=== PATIENT | male | born 1990 | race Caucasian/White ===

== ENCOUNTER 2020-05-04 01:06 | Emergency (ER) | payer OTHER ==
[~2020-05-04] VITALS: Ht 172.7 cm; Wt 113.4 kg
[2020-05-04 01:38] LABS: ABSOLUTE EOSINOPHILS 0.1 thou/uL (0.0-0.7); ABSOLUTE LYMPHOCYTES 0.9 thou/uL (0.8-5.3); ABSOLUTE MONOCYTES 0.3 thou/uL (0.0-1.2); ABSOLUTE NEUTROPHILS 3.8 thou/uL (1.6-8.1); BASOPHILS 0.8 %; EOSINOPHILS 2.6 %; HEMATOCRIT 44.5 % (42.0-52.0); LYMPHOCYTES 17.5 %; MCH 31.1 pg (26.0-34.0); MCHC 33.8 g/dL (28.0-37.0); MONOCYTES 6.6 %; MPV 8.4 fl. (7.2-11.1); NUCLEATED RBCS 0 /100WBC; PLATELET COUNT* 222 thou/uL (150-400); POLYS 72.5 %; RBC 4.84 mil/uL (4.50-6.00); RDW-CV 12.2 % (10.5-14.5); WBC 5.2 thou/uL (4.0-11.0)
[2020-05-04 01:46] LABS: CALCIUM 8.8 mg/dL (8.5-10.1); CREATININE 1.7 mg/dL (0.6-1.3); POTASSIUM 3.9 mmol/L (3.5-5.1)
[2020-05-04 01:51] LABS: ALBUMIN 3.7 g/dL (3.4-5.0); TOTAL BILIRUBIN 0.4 mg/dL (<0.1-1.0); TOTAL PROTEIN 7.2 g/dL (6.4-8.2)
[2020-05-04 02:18] VITALS: BP 135/72
--- NOTE | 2020-05-04 12:52 | EKG ---
[place] [address] ELECTROCARDIOGRAM REPORT Name: TY MCCRAY Room: [facility]#: [id number] Admission: 05/04/20 Attend Phys: Discharge: 05/04/20 Date of : 89 Date of Service: 05/04/20109 Report #: [id number] THIS REPORT FOR: //name// [facility] ED Test Date: 2020-05-04 Test Time: 01:10:35 Pat Name: TY MCCRAY Department: Room: Gender: [employer]: [place] : 1990 Requested By: Osmin Christianson Order Number: [id number] MD: Bronson Bynre Measurements Intervals Amasa Rate: 101 P: 57 SC: 135 QRS: 59 QRSD: 84 T: -2 QT: 323 QTc: 419 Interpretive Statements Sinus tachycardia No previous ECG available for comparison Electronically Signed On 05-04-2020 12:52:35 LEGUILLON DEBEADER by Bronson Byrne [email or web address] <ELECTRONICALLY SIGNED> By: Bronson Byrne MD, [facility] 05/04/20 1252 9 9 Bronson Byrne MD, FACC /EPI
== END 2020-05-04 02:19 | disposition home or self-care (01) ==
LOC: M.ERS 01:06
PROVIDERS: Emergency Medicine Emergency Medical Services
DX: R00.2 Palpitations (principal)